=== PATIENT | female | born 1995 | race Caucasian/White ===

== ENCOUNTER → 2016-07-13 | Outpatient (CLI) | payer OTHER ==
[~2016-07-13] MED LIST: PRENTAB9 PO
[2016-07-13 13:23] LABS: MEAN CORPUSCULAR HEMOGLOBIN 30.8 pg (27.0-33.0); MEAN CORPUSCULAR HGB CONC 33.2 g/dl (32.0-36.5); MEAN CORPUSCULAR VOLUME 92.9 fl (80.0-96.0); RED CELL DISTRIBUTION WIDTH 11.9 % (11.5-14.5); WHITE BLOOD COUNT 17.1 K/mm3 (4.0-10.0)
== END ==
LOC: M SMT 09:10
PROVIDERS: ATTEND Advanced Practice Midwife
DX: Z34.82 Encounter for supervision of other normal pregnancy, second trimester (principal)

== ENCOUNTER 2016-07-17 15:47 | Outpatient (CLI) | payer OTHER ==
[~2016-07-17] VITALS: Ht 165.1 cm; Wt 58.0 kg
[2016-07-17] MEDS ORDERED: PRENTAB9 PO (16:12)
[2016-07-17 16:16] VITALS: BP 120/72
[2016-07-17 17:28] LABS: AMPHETAMINES URINE REFLEX NEGATIVE (NEGATIVE); BARBITURATES URINE REFLEX NEGATIVE (NEGATIVE); BENZODIAZEPINES URINE REFLEX NEGATIVE (NEGATIVE); COCAINE METABOLITE URINE REFLE NEGATIVE (NEGATIVE); CONTROL LINE INT CTR LINE PRESENT; METHADONE URINE REFLEX NEGATIVE (NEGATIVE); OPIATES URINE REFLEX NEGATIVE (NEGATIVE); TRICYCLIC ANTIDEPRESS UR REFL NEGATIVE (NEGATIVE)
--- NOTE | 2016-07-17 19:10 | REPUSA ---
CLINICAL HISTORY: Vaginal spotting. TECHNIQUE: Realtime sonographic images were obtained in multiple projections. COMMENTS: LMP: 01/05/2016. GA by LMP: 27 weeks 5 days; CECILIA: 10/11/2016. GA by first US: 28 weeks 2 days; CECILIA: 10/07/2016. GA by today's US: 29 weeks 4 days; CECILIA: 09/28/2016 GA for sonogram 29 weeks 4 days (27 weeks 1 day - 32 weeks 0 days) Sonographically, the estimated gestational age is 29 wks 4 days. There has been appropriate interval growth since prior exam. gender was documented as undetermined at this time. Nuchal cord was not seen. Please note that the LMP was based on the patient's stated last LMP. BIOMETRY AND GROWTH: Weight Estimate: Weight: 1359 gm /21bs, 150z Normal. 1164 gm (873- 1455) Wt%: 82% for 27 weeks 5 days. Cervical Length: 3.3 cm Heart Rate: 160 bpm Amniotic Fluid Index: 13.4 cm (9.4 - 22.7) DOPPLER: Umbilical - Mid Cord PSV 50.9 cm/s EDV 13.6 cm/s S/D 3.74 (2.60-4.00) R1 0.73-(0.59-0.75) ANATOMY: Cranium: Normal Choroid plexus: Normal. Cavum: Normal. Cerebellum/post fossa: Suboptimal. (Due to advanced gestational age) Face/Profile: Normal. Lungs: Normal. 4 Ch: Normal. LVOT: Normal RVOT: Suboptimal. (Due to position) Diaphragm: Normal. Stomach (left sided): Normal. Cord Ins: Suboptimal. (Due to position) 3V Cord: Normal. Kidneys: Normal. Bladder: Normal. Spine (sag and trv planes): Normal. Upper extremities: Suboptimal. (Due to position and/or advanced gestational age) Lower extremities: Suboptimal. (Due to position and/or advanced gestational age) IMPRESSION: Single living intrauterine fetus, dated 29 wks 4 days. There has been appropriate interval growth si nce prior exam. Thank you for your kind referral of this patient. We appreciate the opportunity to participate in th is patient's care.
[2016-07-22 10:13] LABS: GC Carboxy THC 33 ng/mL (Cutoff=10)
== END 2016-07-17 18:25 | disposition home or self-care (01) ==
LOC: M LDO 15:47
PROVIDERS: ATTEND Advanced Practice Midwife
DX: O26.892 Other specified pregnancy related conditions, second trimester (principal); Z3A.27 27 weeks gestation of pregnancy; O99.322 Drug use complicating pregnancy, second trimester; F12.90 Cannabis use, unspecified, uncomplicated

== ENCOUNTER → 2016-09-16 | Outpatient (REF) | payer OTHER | LOC: M LAB REF 13:11 | PROVIDERS: ATTEND Advanced Practice Midwife | DX: Z34.83 Encounter for supervision of other normal pregnancy, third trimester (principal) ==

== ENCOUNTER 2016-09-24 07:50 | Inpatient (IN) | payer OTHER ==
[2016-09-24] VITALS (37 sets, daily range): BP systolic 121–159; BP diastolic 67–99
[~2016-09-24] VITALS: Ht 165.1 cm; Wt 72.0 kg
[2016-09-24] MEDS ORDERED: LACTATED RINGER'S 1000 ML IV STA (08:12)
[2016-09-24] MEDS ORDERED: LR 1,000 ML IV SCH (08:12)
[2016-09-24] MEDS ORDERED: CLINDAMYCIN 900 MG in APPROPRIATE DILUENT 1 EA IV SCH (09:00)
[2016-09-24 09:12] LABS: MEAN CORPUSCULAR HEMOGLOBIN 30.3 pg (27.0-33.0); MEAN CORPUSCULAR HGB CONC 34.1 g/dl (32.0-36.5); MEAN CORPUSCULAR VOLUME 88.7 fl (80.0-96.0); RED CELL DISTRIBUTION WIDTH 12.8 % (11.5-14.5)
[2016-09-24 09:14] LABS: WHITE BLOOD COUNT 30.8 K/mm3 (4.0-10.0)
[2016-09-24] MEDS ORDERED: FENTANYL 2MCG/ML ROPIVACAINE 0.2% NACL 250 ML CADD As Ordered ONE (10:37)
[2016-09-24 10:52] LABS: ALT/SGPT 15 U/L (12-78); AST/SGOT 28 U/L (15-37); BILIRUBIN,TOTAL 0.5 MG/DL (0.2-1.0); CREATININE FOR GFR 0.98 MG/DL (0.55-1.02); GLOMERULAR FILTRATION RATE > 60.0 (>60); URIC ACID 3.9 MG/DL (2.6-6.0)
[2016-09-24] MEDS ORDERED: FENTANYL/ROPIVACAINE/NACL CADD 250 ML EPIDURAL SCH (12:00)
[2016-09-24] MEDS ORDERED: diphenhydrAMINE INJ 50MG/ML VIAL (J1200) IV PRN (12:00)
[2016-09-24] MEDS ORDERED: NALOXONE INJ 0.4 MG/1 ML VIAL (J2310) IV PRN (12:00)
[2016-09-24] MEDS ORDERED: ONDANSETRON 4MG/2ML VIAL (J2405) IV PRN (12:00)
[2016-09-24] MEDS ORDERED: EPIDURAL/PCA KEYS XX PRN (12:00)
[2016-09-24] MEDS ORDERED: EPIDURAL COMMENT XX SCH (12:00)
[2016-09-24] MEDS ORDERED: LACTATED RINGER'S 1000 ML IV PRN (12:00)
[2016-09-24] MEDS ORDERED: REFRIGERATOR IV KEYS XX PRN (12:00)
[2016-09-24] MEDS ORDERED: ePHEDrine SULFATE 25 MG/5 ML(5MG/ML) SYRINGE IV PRN (12:00)
[2016-09-24] MEDS ORDERED: OXYTOCIN DRIP 30 UNITS in APPROPRIATE DILUENT 1 EA IV SCH ×2 (13:30→16:25)
[2016-09-24] MEDS ORDERED: OXYTOCIN 30 UNITS IN 0.9% NaCl 500ML IV BAG (J2590) As Ordered ONE (13:34)
[2016-09-24 16:23] LABS: CORD GAS ABE V -2.3; CORD GAS HCO3 V 23.9 MEQ/L; CORD GAS O2 SAT V 50.3 %; CORD GAS PCO2 V 45.6 mmHg; CORD GAS PH V 7.337 UNITS; CORD GAS PO2 V 21.6 mmHg; CORD GAS SBC V 21.3 MEQ/L; CORD GAS TCO2 V 25.3 MEQ/L
[2016-09-24 16:24] LABS: CORD GAS ABE A -2.4; CORD GAS HCO3 A 25.9 MEQ/L; CORD GAS O2 SAT A 23.7 %; CORD GAS PCO2 A 58.3 mmHg; CORD GAS PH A 7.265 UNITS; CORD GAS PO2 A 14.2 mmHg; CORD GAS SBC A 20.6 MEQ/L; CORD GAS TCO2 A 27.7 MEQ/L
[2016-09-24] MEDS ORDERED: DOCUSATE SODIUM 100 MG CAP PO PRN (16:30)
[2016-09-24] MEDS ORDERED: METHYLERGONOVINE MALEATE 0.2 MG TAB PO PRN (16:30)
[2016-09-24] MEDS ORDERED: RHOGAM 300 MCG (1500 IU) INJ (J2790) IM SCH (16:30)
[2016-09-24] MEDS ORDERED: DIBUCAINE 1% OINTMENT 30GM TOP PRN (16:30)
[2016-09-24] MEDS ORDERED: MEASLES,MUMPS,RUBELLA VACCINE INJ (MMR-II) (90707) SC SCH (16:30)
[2016-09-24] MEDS ORDERED: ANUSOL HC CREAM 30GM TOP PRN (16:30)
[2016-09-24] MEDS: IBUPROFEN 800 MG TAB PO PRN (18:03)
[2016-09-24] MEDS: ACETAMINOPHEN 500 MG TAB PO PRN (18:03)
[2016-09-25 05:23] VITALS: BP 136/74
[2016-09-25 07:00] LABS: MEAN CORPUSCULAR HEMOGLOBIN 30.1 pg (27.0-33.0); MEAN CORPUSCULAR HGB CONC 33.6 g/dl (32.0-36.5); MEAN CORPUSCULAR VOLUME 89.7 fl (80.0-96.0); RED CELL DISTRIBUTION WIDTH 12.9 % (11.5-14.5)
[2016-09-25 07:17] LABS: WHITE BLOOD COUNT 29.6 K/mm3 (4.0-10.0)
[2016-09-25] MEDS: PRENATAL VITAMIN TAB PO SCH (08:39)
[2016-09-25] MEDS: IBUPROFEN 800 MG TAB PO PRN (17:24)
[2016-09-25 18:00] VITALS: BP 130/72
[2016-09-25 19:47] VITALS: BP 130/72
--- NOTE | 2016-09-25 19:47 | HPE ---
DATE OF ADMISSION: 09/24/2016 HISTORY OF PRESENT ILLNESS: Barbara is a 20-year-old female 2, para 0-0-1-0, with an estimated date of confinement (EDC) of 10/11/2016, estimated gestational age (EGA) 38-5/7 weeks gestation, who presented to labor and delivery with complaint of contractions. Upon evaluation, she was found to be in active labor. At this point a decision was made for admission. The patient has a positive group B streptococcus (GBS). Record is reviewed which was essentially unremarkable. The patient has blood type of B positive, rubella immune, hepatitis negative, HIV negative, GC/chlamydia negative, one-hour sugar testing was within normal limits. Her GBS is positive. PAST MEDICAL HISTORY: Significant for asthma and seasonal allergies. PAST SURGICAL HISTORY: Denies. SOCIAL HISTORY: Denies any alcohol, drugs or cigarette smoking. REVIEW OF SYSTEMS: Unremarkable. MEDICATIONS: vitamins. ALLERGIES: PENICILLIN FAMILY HISTORY: Significant for diabetes. PHYSICAL EXAMINATION ON ADMISSION: HEENT: Grossly within normal limits. ABDOMEN: Soft, nontender, nondistended. Gravid. EXTREMITIES: No clubbing, cyanosis or edema. VAGINAL EXAM: 4 cm, 100% effaced with a bulging membrane, fetus at zero station. Tracing reviewed, category one tracing. No deceleration. Contractions every 3-4 minutes. ASSESSMENT: 1. Intrauterine at 38-5/7 weeks gestation in active labor. 2. Positive group B strep culture. PLAN: Admit to labor and delivery. Routine labs sent. Given that the patient is allergic to penicillin, clindamycin was given for GBS prophylaxis. Will continue to monitor. Anticipate delivery. Pain management discussed. The patient opts for an epidural. [facility]
--- NOTE | 2016-09-25 21:47 | DN ---
DATE: 09/24/2016 Barbara is a 20-year-old female 2, para 0-0-1-0, who was admitted at 38-5/7 weeks gestation in active labor. She progressed to fully dilated after an epidural and artificial rupture of membranes. She then pushed for approximately 2-1/2 hours and delivered a live female in occiput posterior position over midline episiotomy. scores 8 and 9. weight 8 pounds 1 ounce. Placenta delivered spontaneously intact. Three-vessel cord. The episiotomy was repaired using 2-0 chromic. Perineum, vagina, and cervix inspected. No laceration noted. Estimated blood loss 350 mL. Both mother and baby in stable condition.
[2016-09-26 05:23] VITALS: BP 119/57
[2016-09-26] MEDS: IBUPROFEN 800 MG TAB PO PRN (06:06)
[2016-09-26] MEDS: ACETAMINOPHEN 500 MG TAB PO PRN (06:07)
[2016-09-26] MEDS: PRENATAL VITAMIN TAB PO SCH (08:12)
[2016-09-26] MEDS ORDERED: ACET50TA PO (08:20)
[2016-09-26] MEDS ORDERED: IBUP-1114 PO (08:21)
== END 2016-09-26 14:15 | disposition home or self-care (01) | DRG 560 ==
LOC: M LDO 07:50 → M LDI 08:13 → M OBS 18:24
PROVIDERS: ADMIT Obstetrics & Gynecology; ATTEND Obstetrics & Gynecology
PROC: 10E0XZZ Delivery of Products of Conception, External Approach (ICD-10-PCS; principal; 2016-09-24)
PROC: 10907ZC Drainage of Amniotic Fluid, Therapeutic from Products of Conception, Via Natural or Artificial Opening (ICD-10-PCS; 2016-09-24)
PROC: 0W8NXZZ Division of Female Perineum, External Approach (ICD-10-PCS; 2016-09-24)
DX: O99.824 Streptococcus B carrier state complicating childbirth (principal); Z88.0 Allergy status to penicillin; Z37.0 Single live birth; Z3A.38 38 weeks gestation of pregnancy; Z83.3 Family history of diabetes mellitus; Z79.899 Other long term (current) drug therapy

== ENCOUNTER → 2017-02-01 | Outpatient (CLI) | payer OTHER ==
[~2017-02-01] MED LIST changes: +ACET50TA PO; +IBUP-1114 PO
--- NOTE | 2017-02-01 16:29 | REP ---
PELVIC ULTRASOUND: Real-time sonographic evaluation of the pelvis was performed utilizing transabdominal technique. The bladder measures 2.2 x 5.0 x 5.0 cm. The uterus measures 7.2 x 3.9 x 5.2 cm. Endometrial thickness is 14 mm. There is no endometrial fluid collection. Ovaries are normal in size and echotexture, right ovary measuring 3.4 x 2.4 x 2.2 cm and the left ovary measuring 3.3 x 1.9 x 2.7 cm. There is no adnexal mass. There is trace free fluid in the right adnexa which is likely physiologic in nature. There is blood flow seen in each ovary with duplex Doppler evaluation, with no torsion. IMPRESSION: Essentially negative pelvic ultrasound. Signed by Ian Blake MD 02/02/2017 05:53 P
== END ==
LOC: M RAD 14:44
PROVIDERS: ATTEND Physician Assistant
DX: R10.30 Lower abdominal pain, unspecified (principal)

== ENCOUNTER → 2017-06-25 | Outpatient (REF) | payer OTHER | LOC: M LAB REF 21:32 | PROVIDERS: ATTEND Physician Assistant | DX: J02.9 Acute pharyngitis, unspecified (principal) ==

== ENCOUNTER 2018-02-21 10:09 | Emergency (ER) | payer OTHER ==
[2018-02-21 11:08] LABS: BASO % 0.3 % (0.0-1.0); EOS # 0.3 10^3/uL (0.0-0.50); EOS % 2.9 % (0.0-3.0); HEMATOCRIT 43.2 % (36.0-47.0); HEMOGLOBIN 14.4 g/dl (12.0-15.5); IMMATURE GRANULOCYTE % 0.4 % (0-3.0); LYMPH # 1.9 10^3/uL (1.5-6.5); LYMPH % 18.7 % (24.0-44.0); MEAN CORPUSCULAR HEMOGLOBIN 30.5 pg (27.0-33.0); MEAN CORPUSCULAR HGB CONC 33.3 g/dl (32.0-36.5); MEAN CORPUSCULAR VOLUME 91.5 fl (80.0-96.0); MONO # 0.7 10^3/uL (0.0-0.8); MONO % 6.3 % (0.0-5.0); NEUTROPHILS # 7.3 10^3/uL (1.8-7.7); NEUTROPHILS % 71.4 % (36.0-66.0); PLATELET COUNT, AUTOMATED 286 10^3/uL (150-450); RED BLOOD COUNT 4.72 10^6/uL (4.00-5.40); RED CELL DISTRIBUTION WIDTH 12.5 % (11.5-14.5); WHITE BLOOD COUNT 10.3 10^3/uL (4.0-10.0)
[2018-02-21 11:20] LABS: AMORPHOUS SEDIMENT RFX SMALL (NEGATIVE); KETONE, URINE AUTO RFX NEGATIVE (NEGATIVE); LEUKOCYTE ESTERASE UR AUTO RFX TRACE (NEGATIVE); MUCUS, URINE RFX SMALL (NEGATIVE); NITRITE, URINE AUTO RFX NEGATIVE (NEGATIVE); RBC, URINE AUTO RFX 2 /HPF (0-3); SPECIFIC GRAVITY UR AUTO RFX 1.017 (1.002-1.035); SQUAM EPITHELIAL CELL UR AURFX 7 /HPF (0-6); WBC, URINE AUTO RFX 3 /HPF (0-3)
[2018-02-21 11:56] LABS: ANION GAP 6 MEQ/L (8-16); BLOOD UREA NITROGEN 7 MG/DL (7-18); CALCIUM LEVEL 8.4 MG/DL (8.5-10.1); CARBON DIOXIDE LEVEL 22 MEQ/L (21-32); CHLORIDE LEVEL 112 MEQ/L (98-107); CREATININE FOR GFR 0.83 MG/DL (0.55-1.30); GLOMERULAR FILTRATION RATE > 60.0 (>60); GLUCOSE, FASTING 87 MG/DL (70-100); HCG, SERUM QUANTITATIVE 2892 MIU/ML; POTASSIUM SERUM 4.2 MEQ/L (3.5-5.1); SODIUM LEVEL 140 MEQ/L (136-145)
== END 2018-02-21 12:50 | disposition home or self-care (01) ==
LOC: M ED 10:09
DX: O26.891 Other specified pregnancy related conditions, first trimester (principal); O20.8 Other hemorrhage in early pregnancy; Z79.899 Other long term (current) drug therapy; Z88.0 Allergy status to penicillin
CPT/HCPCS: 76801

== ENCOUNTER → 2018-02-23 | Outpatient (CLI) | payer OTHER ==
[2018-02-23 10:22] LABS: HCG, SERUM QUANTITATIVE 6231 MIU/ML
== END ==
LOC: M LAB 08:48
DX: Z36.89 Encounter for other specified antenatal screening (principal)
CPT/HCPCS: 84702

== ENCOUNTER → 2018-03-27 | Outpatient (CLI) | payer OTHER ==
[2018-03-27 14:47] LABS: BASO # 0.1 10^3/uL (0.0-0.2); BASO % 0.3 % (0.0-1.0); EOS # 0.4 10^3/uL (0.0-0.50); EOS % 2.7 % (0.0-3.0); HEMATOCRIT 40.1 % (36.0-47.0); HEMOGLOBIN 13.7 g/dl (12.0-15.5); IMMATURE GRANULOCYTE % 0.5 % (0-3.0); LYMPH # 2.9 10^3/uL (1.5-6.5); LYMPH % 19.3 % (24.0-44.0); MEAN CORPUSCULAR HEMOGLOBIN 30.8 pg (27.0-33.0); MEAN CORPUSCULAR HGB CONC 34.2 g/dl (32.0-36.5); MEAN CORPUSCULAR VOLUME 90.1 fl (80.0-96.0); MONO # 0.8 10^3/uL (0.0-0.8); MONO % 5.6 % (0.0-5.0); NEUTROPHILS # 10.7 10^3/uL (1.8-7.7); NEUTROPHILS % 71.6 % (36.0-66.0); PLATELET COUNT, AUTOMATED 242 10^3/uL (150-450); RED BLOOD COUNT 4.45 10^6/uL (4.00-5.40); RED CELL DISTRIBUTION WIDTH 12.1 % (11.5-14.5); WHITE BLOOD COUNT 14.9 10^3/uL (4.0-10.0)
[2018-03-27 16:19] LABS: CHLAMYDIA DNA AMPLIFICATION NEGATIVE (NEGATIVE); GC DNA AMPLIFICATION NEGATIVE (NEGATIVE)
[2018-03-28 10:34] LABS: HEPATITIS C VIRUS ABY INDEX 0.1 INDEX (<0.8)
[2018-03-28 10:34] LABS: HBsAg Prenatal NEGATIVE (NEGATIVE); HIV 1&2 SCREEN CENTAUR NEGATIVE (NEGATIVE); RUBELLA IgG QUALITATIVE IMMUNE (IMMUNE)
== END ==
LOC: M LAB 13:33
DX: Z34.81 Encounter for supervision of other normal pregnancy, first trimester (principal); Z3A.09 9 weeks gestation of pregnancy
CPT/HCPCS: 86762

== ENCOUNTER → 2018-05-29 | Outpatient (CLI) | payer OTHER | LOC: M RAD 08:24 | DX: Z36.89 Encounter for other specified antenatal screening (principal); Z3A.19 19 weeks gestation of pregnancy | CPT/HCPCS: 76811 ==

== ENCOUNTER → 2018-08-08 | Outpatient (CLI) | payer OTHER ==
[~2018-08-08] MED LIST changes: +ACET1TAB16 PO; -ACET50TA PO; +MAPA500T2 PO
[2018-08-08 13:32] LABS: HEMATOCRIT 35.7 % (36.0-47.0); MEAN CORPUSCULAR HEMOGLOBIN 32.3 pg (27.0-33.0); MEAN CORPUSCULAR HGB CONC 33.6 g/dl (32.0-36.5); MEAN CORPUSCULAR VOLUME 96.2 fl (80.0-96.0); PLATELET COUNT, AUTOMATED 202 10^3/uL (150-450); RED BLOOD COUNT 3.71 10^6/uL (4.00-5.40); WHITE BLOOD COUNT 15.6 10^3/uL (4.0-10.0)
== END ==
LOC: M SMT 09:51
PROVIDERS: ATTEND Advanced Practice Midwife
DX: Z34.82 Encounter for supervision of other normal pregnancy, second trimester (principal)

== ENCOUNTER → 2018-08-09 | Outpatient (REF) | payer OTHER | LOC: M LAB REF 10:27 | PROVIDERS: ATTEND Advanced Practice Midwife | DX: O47.9 False labor, unspecified (principal); Z3A.00 Weeks of gestation of pregnancy not specified ==

== ENCOUNTER → 2018-10-04 | Outpatient (REF) | payer OTHER | LOC: M LAB REF 17:21 | PROVIDERS: ATTEND Obstetrics & Gynecology | DX: Z34.83 Encounter for supervision of other normal pregnancy, third trimester (principal); Z3A.00 Weeks of gestation of pregnancy not specified ==

== ENCOUNTER → 2018-10-04 | Outpatient (CLI) | payer OTHER ==
[2018-10-04 13:46] LABS: ALBUMIN 2.9 GM/DL (3.2-5.2); ALT/SGPT 11 U/L (12-78); BILIRUBIN,DIRECT < 0.1 MG/DL (0.0-0.2); BILIRUBIN,TOTAL 0.2 MG/DL (0.2-1.0); TOTAL PROTEIN 6.2 GM/DL (6.4-8.2)
== END ==
LOC: M SMT 08:41
PROVIDERS: ATTEND Obstetrics & Gynecology
DX: Z34.83 Encounter for supervision of other normal pregnancy, third trimester (principal); Z3A.00 Weeks of gestation of pregnancy not specified

== ENCOUNTER 2018-10-24 19:16 | Inpatient (IN) | payer OTHER ==
[~2018-10-24] VITALS: Ht 167.6 cm; Wt 56.0 kg
[2018-10-24] VITALS (7 sets, daily range): BP systolic 105–127; BP diastolic 52–74
[2018-10-24] MEDS ORDERED: LACTATED RINGER'S 1000 ML IV STA (19:29)
[2018-10-24] MEDS ORDERED: LR 1,000 ML IV SCH (19:29)
[2018-10-24] MEDS ORDERED: OXYTOCIN 30 UNITS IN 0.9% NaCl 500ML IV BAG (J2590) As Ordered ONE (19:42)
[2018-10-24 19:46] LABS: HEMATOCRIT 36.5 % (36.0-47.0); HEMOGLOBIN 12.3 g/dl (12.0-15.5); MEAN CORPUSCULAR HEMOGLOBIN 30.3 pg (27.0-33.0); MEAN CORPUSCULAR HGB CONC 33.7 g/dl (32.0-36.5); MEAN CORPUSCULAR VOLUME 89.9 fl (80.0-96.0); PLATELET COUNT, AUTOMATED 249 10^3/uL (150-450); RED BLOOD COUNT 4.06 10^6/uL (4.00-5.40); WHITE BLOOD COUNT 20.7 10^3/uL (4.0-10.0)
--- NOTE | 2018-10-24 20:02 | HPE ---
DATE OF ADMISSION: 10/24/2018 Barbara is a 22-year-old 4, para 1-0-2-1 at 39-3/7 weeks gestation with an estimated date of delivery (EDC) of 10/28/2018 based on last menstrual period and confirmed by first trimester ultrasound. She presents to labor and delivery today with report of onset of uncomfortable contractions at approximately 04:30. They are 3-4 minutes apart, extremely painful. Denies bloody show and leakage of fluid. The fetus has been active. Her care was initiated at [facility] in the first trimester. course complicated by smoking prior to and a positive fibronectin at 28 weeks gestation, she received betamethasone injections for. OBSTETRIC HISTORY: May 2015 spontaneous miscarriage. September 2015 spontaneous miscarriage. September 2016 37 weeks gestation, 8 pounds 1 ounce female vaginal delivery, uncomplicated. OBSTETRIC LABS: B+, antibody screen negative, rubella immune, VDRL nonreactive. Urine culture no growth. Hep B surface antigen negative, HIV negative. Hep C antibody nonreactive. Gonorrhea and chlamydia negative. Declined genetic serum screening labs. Gestational diabetic screening normal at 81. GBS negative. PAST MEDICAL HISTORY: Asthma, seasonal allergies. PAST SURGICAL HISTORY: None. FAMILY HISTORY: Diabetes. SOCIAL HISTORY: The patient is single, partner is at bedside and supportive. She is a former smoker. Stopped with the . She denies alcohol and drug use. No history of any sexually transmitted infections and denies history of abuse physical, sexual and emotional. ALLERGIES: LATEX, PENICILLIN. CURRENT MEDICATIONS: vitamin. OBJECTIVE Temperature 98.8, pulse 91, respirations 18, BP is 127/74. She is extremely uncomfortable with her contractions, crying and moaning. heart rate is 145 with moderate variability, positive accelerations, no decelerations observed. Contractions are every 3 minutes. They palpate strong. Abdomen is gravid, cephalic presentation. Estimated weight 8-1/2 pounds. Sterile vaginal examination: 7 to 8 cm dilated, 90% effaced, 0 station, mid position, positive normal bloody show. Membranes intact. ASSESSMENT Intrauterine at 39-3/7 weeks. heart rate category one active labor approaching transition. PLAN Admit the patient to labor and delivery floor, routine labs. Out of bed ad thalia. Clear liquid diet. IV fluid bolus of 1000 mL as the patient is requesting an epidural. I do anticipate labor progress and a spontaneous vaginal delivery. The patient and partner have had all their questions answered and do desire to attempt an epidural. I did review the potential for delivery with spontaneous labor may occur prior to administration of epidural. The patient has verbalized understanding.
[2018-10-24] MEDS ORDERED: OXYTOCIN DRIP 30 UNITS in APPROPRIATE DILUENT 1 EA IV SCH (20:43)
[2018-10-24] MEDS ORDERED: IBUPROFEN 800 MG TAB PO PRN (20:45)
[2018-10-24] MEDS ORDERED: MEASLES,MUMPS,RUBELLA VACCINE INJ (MMR-II) (90707) SC SCH (20:45)
[2018-10-24] MEDS ORDERED: DOCUSATE SODIUM 100 MG CAP PO PRN (20:45)
[2018-10-24] MEDS ORDERED: DIBUCAINE 1% OINTMENT 30GM TOP PRN (20:45)
[2018-10-24] MEDS ORDERED: ACETAMINOPHEN 500 MG TAB PO PRN (20:45)
[2018-10-24] MEDS ORDERED: RHOGAM 300 MCG (1500 IU) INJ (J2790) IM SCH (20:45)
[2018-10-24] MEDS ORDERED: METHYLERGONOVINE MALEATE 0.2 MG TAB PO PRN (20:45)
--- NOTE | 2018-10-24 22:02 | DN ---
DATE OF DELIVERY: 10/24/2018 Barbara is a 22-year-old 4, para 2-0-2-2 now is admitted to labor and delivery in active labor. She coped with her labor physiologically. She had assisted rupture of membranes for a small amount of clear odorless fluid at 2003 hours. She reached full dilation at 2007 hours. She pushed to a normal spontaneous vaginal delivery of a live male infant in right occiput anterior (COLLEEN) position with restitution to right occiput transverse (ROT) position at 2019 hours. There was no nuchal cord. The shoulders delivered spontaneously and the corpus immediately followed. The male was placed on maternal abdomen crying and active. His mouth and nares were bulb suctioned. The cord was clamped times two once pulsations ceased and cut by the father of the baby under my direction. Spontaneous expulsion of an intact placenta with three-vessel cord by Torres mechanism was at 2022. Uterine hemostasis achieved with IV Pitocin rapid infusion and uterine fundal massage. Estimated blood loss 315 mL. Perineum and vagina inspected, noted to be intact. male weighed 8 pounds 10 ounces, 3920 grams, Apgars were 9 and 9. Mom is going to breastfeed her son and the family have named him Candido. At the close of delivery lap counts and instrument counts were correct and verified.
[2018-10-25 06:22] VITALS: BP 103/61
[2018-10-25] MEDS: PRENATAL VITAMINS CHEWABLE TABLET PO SCH (07:36)
[2018-10-25 08:30] VITALS: BP 108/68
[2018-10-25 12:10] VITALS: BP 108/68
[2018-10-25 18:00] VITALS: BP 122/72
[2018-10-26 06:00] VITALS: BP 103/54
[2018-10-26] MEDS: PRENATAL VITAMINS CHEWABLE TABLET PO SCH (08:52)
[2018-10-26] MEDS ORDERED: MAPA500T2 PO (09:17)
[2018-10-26] MEDS ORDERED: COLA100C5 PO (09:17)
[2018-10-26] MEDS ORDERED: IBUP-1114 PO (09:17)
== END 2018-10-26 11:55 | disposition home or self-care (01) | DRG 560 ==
LOC: M LDO 19:16 → M LDI 19:28 → M OBS 22:40
PROVIDERS: ADMIT Advanced Practice Midwife; ATTEND Advanced Practice Midwife
PROC: 10E0XZZ Delivery of Products of Conception, External Approach (ICD-10-PCS; principal; 2018-10-24)
PROC: 10907ZC Drainage of Amniotic Fluid, Therapeutic from Products of Conception, Via Natural or Artificial Opening (ICD-10-PCS; 2018-10-24)
DX: O80 Encounter for full-term uncomplicated delivery (principal); Z37.0 Single live birth; Z3A.39 39 weeks gestation of pregnancy

== ENCOUNTER → 2019-03-19 | Outpatient (CLI) | payer OTHER ==
[~2019-03-19] MED LIST changes: +COLA100C5 PO
== END ==
LOC: M SMT 15:44
PROVIDERS: ATTEND Advanced Practice Midwife
DX: Z13.79 Encounter for other screening for genetic and chromosomal anomalies (principal)

== ENCOUNTER 2020-02-16 09:10 | Emergency (ER) | payer OTHER | END 2020-02-16 09:58 | disposition home or self-care (01) | LOC: M ED 09:10 | DX: K04.7 Periapical abscess without sinus (principal); K02.9 Dental caries, unspecified; Z88.0 Allergy status to penicillin; Z79.2 Long term (current) use of antibiotics ==